=== PATIENT | female | born 1995 | race Caucasian/White ===

== ENCOUNTER 2021-02-27 15:49 | Outpatient (CLI) | payer BC | END 2021-02-27 15:50 | disposition home or self-care (01) | LOC: BICULT 15:49 | PROVIDERS: ATTEND Family Medicine | DX: O32.1XX0 Maternal care for breech presentation, not applicable or unspecified (principal); Z3A.20 20 weeks gestation of pregnancy | CPT/HCPCS: 76805 ==

== ENCOUNTER 2022-01-31 15:30 | Outpatient (CLI) | payer BC ==
[2022-01-31 16:02] LABS: Hemoglobin 14.3 g/dL (12.0-15.5); Mean Corpuscular HGB CONC 33.6 g/dL (32.0-36.0); Mean Corpuscular Hemoglobin 30.4 pg (27.0-33.0); Mean Corpuscular Volume 90.2 fl (81.6-98.3); Mean Platelet Volume 8.8 fl (7.4-10.4); Platelet Count 334 10x3/uL (150-450); Red Blood Cell (RBC) Count 4.71 10x6/uL (3.90-5.03); White Blood Cell (WBC) Count 5.1 10x3/uL (3.5-10.5)
[2022-01-31 16:33] LABS: Anion Gap 13 mmol/L (10-20); BUN (Urea Nitrogen) 7 mg/dL (7.0-18.7); Calc. Creatinine Clearance 0 mL/min (70-130); Calcium 9.6 mg/dL (7.8-10.44); Carbon Dioxide 23 mmol/L (22-29); Chloride 107 mmol/L (98-107); Glucose 102 mg/dL (70-105); Potassium 3.9 mmol/L (3.5-5.1); Sodium 139 mmol/L (136-145)
[2022-01-31 16:35] LABS: BHCG - Serum Negative (NEGATIVE); Pregs Control Background? CLEAR/WHITE (CLR/WHITE); Pregs Control Bar Appear? YES (CONTROL BAR)
[2022-02-01 00:17] LABS: SARS-CoV-2 PCR by NAA Not Detected (NotDetected)
== END 2022-01-31 15:31 | disposition home or self-care (01) ==
LOC: LABBT 15:30
PROVIDERS: ATTEND Thoracic Surgery (Cardiothoracic Vascular Surgery)
DX: Z01.812 Encounter for preprocedural laboratory examination (principal); Z20.822 Contact with and (suspected) exposure to COVID-19
CPT/HCPCS: 80048; 84703; 85027; U0003; U0005

== ENCOUNTER 2022-02-02 06:01 | Day surgery (SDC) | payer BC ==
[2022-02-01 11:03] VITALS: BMI 22.3
[2022-02-02] MEDS ORDERED: Ondansetron PF 4 MG/2 ML Vial ONE (07:28)
[2022-02-02] MEDS ORDERED: Dexamethasone 20 MG/5 ML VIAL ONE (07:28)
[2022-02-02] MEDS ORDERED: Rocuronium Bromide 10 MG/ML (10ML VIAL) ONE (07:28)
[2022-02-02] MEDS ORDERED: Ketorolac Tromethamine 30 MG/ML VIAL ONE (07:28)
[2022-02-02] MEDS ORDERED: Lidocaine 1% PF 5 ML VIAL ONE (07:28)
[2022-02-02] MEDS ORDERED: PROPOFOL 200 MG/20 ML VIAL ONE (07:28)
[2022-02-02] MEDS ORDERED: Glycopyrrolate 0.2 MG/ML 5 ML SYRINGE ONE (07:28)
== END 2022-02-02 13:47 | disposition home or self-care (01) ==
LOC: SJX 06:01 → EDSTATUS 15:45
PROVIDERS: ATTEND Thoracic Surgery (Cardiothoracic Vascular Surgery)
PROC: 0PB10ZZ Excision of 1 to 2 Ribs, Open Approach (ICD-10-PCS; principal; 2022-02-02)
DX: M94.8X8 Other specified disorders of cartilage, other site (principal); Z79.890 Hormone replacement therapy; Z79.899 Other long term (current) drug therapy
CPT/HCPCS: 36416; 87070; 87102; 87205; 87206; 88305; 88311; C1776; J1100; J1885; J2405; J2704

== ENCOUNTER 2024-03-20 08:08 | Emergency (ER) | payer BC ==
[2024-03-20 09:40] LABS: #Basophils 0.04 10x3/uL (0.0-0.2); %Basophils 0.7 % (0.0-1.0); %Eosinophils 4.2 % (0.0-10.0); %Lymphocytes 18.8 % (21.0-51.0); %Monocytes 8.5 % (0.0-10.0); %Neutrophils 67.6 % (42.0-75.0); Hematocrit 41.9 % (36.0-47.0); Hemoglobin 14.1 g/dL (12.0-16.0); Mean Corpuscular HGB CONC 33.7 g/dL (32.0-36.0); Mean Corpuscular Hemoglobin 31.3 pg (27.0-31.0); Mean Corpuscular Volume 93.1 fL (78.0-98.0); Mean Platelet Volume 8.9 fL (7.4-10.4); Platelet Count 269 10x3/uL (130-400); RBC Distribution Width 11.9 % (11.5-14.5)
[2024-03-20 10:21] LABS: Bilirubin Negative (Negative); Blood, Urine 3+ (Negative); Clarity Clear (Clear); Glucose, Urine (Dipstick) Normal (Negative); Ketone, Urine Negative (Negative); Leukocyte 250 Leu/uL (Negative); Nitrite Negative (Negative); Protein, Urine (Dipstick) Negative (Neg-Trace); RBC/HPF None Seen HPF (0-3); Specific Gravity, Urine 1.007 (1.002-1.036); Squamous Epithelial 0-3 HPF (0-3); Urobilinogen Normal mg/dL (Less than 2); WBC/HPF 0-3 HPF (0-3)
[2024-03-20 10:30] LABS: Bacteria/HPF 1+ HPF (None Seen)
== END 2024-03-20 13:52 | disposition home or self-care (01) ==
LOC: ERS 08:08
DX: O20.0 Threatened abortion (principal); O99.281 Endocrine, nutritional and metabolic diseases complicating pregnancy, first trimester; E03.9 Hypothyroidism, unspecified; Z3A.01 Less than 8 weeks gestation of pregnancy
CPT/HCPCS: 76801; 81001; 84702; 85025; 86850; 86900; 86901; 90384; 96372